=== PATIENT | female | born 1985 | race Caucasian/White ===

== ENCOUNTER 2016-07-30 20:56 | Emergency (ER) | payer OTHER ==
[~2016-07-30] VITALS: Ht 157.5 cm; Wt 106.6 kg
[~2016-07-30 20:56] MED LIST: AMOXIL500 MG PO; AUGMENTIN 875 M1 TAB PO; NASONEX0.05 MG/Ac INH; TRIAMCINOL0.1 %/453 TOP; ZOFRAN4 M2 PO
[2016-07-30 21:27] VITALS: BP 166/83
--- NOTE | 2016-07-30 21:56 | ED EYE COMPLAINT ---
History of Present Illness General Chief Complaint: Eye Problems Stated Complaint: EYE PAIN Source: patient Exam Limitations: no limitations Vital Signs & Intake/Output Vital Signs & Intake/Output Vital Signs Date Time Temp Pulse Resp B/P B/P Pulse O2 O2 Flow FiO2 Mean Ox Delivery Rate 07/30 2126 97.4 64 18 166/83 100 Room Air Allergies Coded Allergies: cefaclor (UNKNOWN 08/07/15) Reconcile Medications Ciprofloxacin (Ciloxan) 0.3 % DROPS 1 GTT OPH 4 TIMES/DAY corneal abrasion use for 7 days Ibuprofen 800 MG TABLET 1 TAB PO Q8 PRN PAIN Ondansetron HCl (Zofran) 4 MG TABLET 1 TAB PO Q6 PRN NAUSEA Oxycodone HCl/Acetaminophen (Percocet 5-325 MG Tablet) 5 MG-325 MG TABLET 1 TAB PO Q6H PRN severe pain Triage Note: PT TO ED FOR R EYE PAIN, STATING SHE FELL ASLEEP WITH HER CONTACTS IN AND WHEN SHE WOKE UP AND TOOK THEM OUT "IT WAS THE WORST PAIN IN MY LIFE" PT REPORTING BLURRY VISION, "SAND PAPER IN MY EYE" AND SEVERE EYE WATERING. Triage Nurses Notes Reviewed? yes : No Patient currently breastfeeds: No HPI: Patient is a 30-year-old female presents complaining of right eye pain. Patient reports she fell asleep in her contact lens and when she went to remove the contact lens from her right eye she felt a scratching sensation to her right eye. Pain is a sharp pain is like sandpaper currently severe. Associated blurred vision to the right eye. (YOUSIF RIZZO) Past History Travel History Traveled to [place] past 21 day No Medical History Any Pertinent Medical History? 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 No (YOUSIF RIZZO) Review of Systems Review of Systems Constitutional: Denies: chills, fever. Eyes: Reports: see HPI. Musculoskeletal: Reports: no symptoms. Skin: Reports: no symptoms. Neurological/Psychological: Reports: headache. Hematologic/Endocrine: Reports: no symptoms. Immunologic/Allergic: Reports: no symptoms. (YOUSIF RIZZO) Physical Exam General Appearance: well developed/nourished, alert, awake General Inspection: normal inspection Eyelid: normal inspection Conjunctiva/Sclera: normal inspection Cornea: normal inspection EOM: intact Pupil: normal accommodation General Inspection: normal inspection Eyelid: normal inspection, everted for exam, no foreign body Conjunctiva/Sclera: mildly injected Cornea: 1-2mm area of fluorescein uptake over the pupil. No visible foreign bodies EOM: intact Pupil: normal accommodation Physical Exam Head: atraumatic, normal appearance Nose: normal inspection Neck: normal inspection, supple, full range of motion Cardiovascular/Respiratory: no respiratory distress Neurologic/Psych: no motor/sensory deficits, awake, alert, oriented x 3, normal gait, normal mood/affect Skin: intact, normal color, warm/dry (YOUSIF RIZZO) Progress Differential Diagnosis: corneal abrasion, corneal foreign body, conjunctivitis, glaucoma Plan of Care: See nursing documentation for visual acuity exam. Patient instructed to follow up with her eye doctor on Monday for further evaluation. (YOUSIF RIZZO) Departure Departure Time of Disposition: 2205 Disposition: HOME OR SELF CARE Condition: Stable Clinical Impression Primary Impression: Corneal abrasion, right Qualifiers: Encounter type: initial encounter Qualified Code: S05.01XA - Injury of conjunctiva and corneal abrasion without foreign body, right eye, initial encounter Referrals: KATHERYN PAIGE,RA Bains (PCP/Family) Additional Instructions: Follow-up with your eye doctor on Monday for further evaluation. Do not wear contact lenses until directed to do so by your eye doctor. Return to emergency department if any worsening in your vision or worsening of symptoms. Departure Forms: Customer Survey General Discharge Information Prescriptions: Current Visit Scripts Ciprofloxacin (Ciloxan) 1 GTT OPH 4 TIMES/DAY #5 ML use for 7 days Ibuprofen 1 TAB PO Q8 PRN PAIN #20 TAB Oxycodone HCl/Acetaminophen (Percocet 5-325 MG Tablet) 1 TAB PO Q6H PRN severe pain #8 TAB (YOUSIF RIZZO) PA/FLOORMAN Co-Sign Statement Statement: ED Attending supervision documentation- [] I saw and evaluated the patient. I have also reviewed all the pertinent lab results and diagnostic results. I agree with the findings and the plan of care as documented in the PA's/FLOORMAN's documentation. [X] I have reviewed the ED Record and agree with the PA's/FLOORMAN's documentation. [] Additions or exceptions (if any) to the PAs/FLOORMAN's note and plan are summarized below: [] (ROSE MARIE PAIGE,NATANAEL)
[2016-07-30] MEDS ORDERED: CILOXAN5 ML OPH (22:08)
[2016-07-30] MEDS ORDERED: PERCOCET 5-3251 EACH PO (22:08)
[2016-07-30] MEDS ORDERED: IBUPROFEN800 M1 PO (22:08)
== END 2016-07-30 22:15 ==
LOC: ERH 20:56
DX: S05.01XA Injury of conjunctiva and corneal abrasion without foreign body, right eye, initial encounter (principal); X58.XXXA Exposure to other specified factors, initial encounter; Y92.9 Unspecified place or not applicable; Y93.9 Activity, unspecified